=== PATIENT | male | born 1960 | race Two or more races ===

== ENCOUNTER 2017-09-12 14:52 | Emergency (ER) | payer MEDICAID, OTHER ==
[~2017-09-12] VITALS: Ht 177.8 cm; Wt 99.8 kg
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
--- NOTE | 2017-09-12 16:57 | NUR ---
Patient discharged to home in stable condition. Written and verbal after care instructions given. Patient verbalizes understanding of instruction.
[2017-09-12 16:59] VITALS: BP 128/77
== END 2017-09-12 17:00 | disposition home or self-care (01) ==
LOC: ER 14:55
DX: M54.5 Low back pain (principal); M25.561 Pain in right knee; V43.52XA Car driver injured in collision with other type car in traffic accident, initial encounter; Y93.89 Activity, other specified; Y92.89 Other specified places as the place of occurrence of the external cause; Y99.8 Other external cause status
CPT/HCPCS: 72100; 73562; 99284; A4606; Z7610